=== PATIENT | male | born 2005 | race Caucasian/White ===

== ENCOUNTER 2025-04-14 13:25 | Emergency (ER) | payer SELFPAY ==
[2025-04-14 13:31] VITALS: BP 127/72
--- NOTE | 2025-04-14 15:50 | ED.GENMED ---
History of Present Illness
General
Chief Complaint: Eye Problems
Time Seen by Provider: 04/14/25 15:40
History of Present Illness
History of Present Illness:
19-year-old male presents to the emergency department for evaluation of left eye redness, states 2 days ago he was cutting some metal board with dust kicked into his eye, and symptoms began the following day. Denies any blurry or double vision,
does not wear contacts
Past History
Social History
Tobacco: Vaping (with nicotine)
Alcohol: None
Drug: Marijuana (couple times a week)
Review of Systems
Review of Systems
Allergies reviewed?: Yes
All Other Systems: ROS reviewed and negative except as documented in HPI and ROS
Phy Exam
Physical Exam
Physical Exam:
GEN: Well appearing, NAD, WDWN
HEENT: Oral mucosa moist, no scleral icterus. Moderate left conjunctival injection without visible foreign body. Fluorescein stain reveals no dye uptake, anterior chamber is without hyphema or hypopyon, extraocular motion is normal, no
conjunctival foreign bodies
Cardiac: Regular rate
Lung: No respiratory distress, no tachypnea
MSK: No gross deformity or injuries
Skin: Good color, no pallor or jaundice, no rashes
Neuro: AO x3, moves all extremities freely
Psych: Calm, cooperative
Course
Orders/Labs/Results
Orders:
Orders
04/14/25 15:54
Fluorescein Sodium [Ful-Irena] 1 mg .ROUTE .STK-MED ONE
Purified Water Eye Wash [Dacriose Eye Wash Solution] 120 ml .ROUTE .STK-MED ONE
Tetracaine HCl [Tetracaine 0.5% Ophthalmic Solution] 1 drop .ROUTE .STK-MED ONE
Vital Signs
Initial and Last Documented VS:
Initial Vital Signs
Temp Pulse Resp BP Pulse Ox
98.2 F 89 16 127/72 98
04/14/25 13:31 04/14/25 13:31 04/14/25 13:31 04/14/25 13:31 04/14/25 13:31
Last Documented Vital Signs
Temp Pulse Resp BP Pulse Ox
98.2 F 89 16 127/72 98
04/14/25 13:31 04/14/25 13:31 04/14/25 13:31 04/14/25 13:31 04/14/25 15:53
MDM/Problems Addressed
MDM/Problems Addressed:
Patient's visual acuity is normal, no visible evidence for foreign body or corneal abrasion on exam
*Pulse Oximetry
SaO2: 98
Oxygen Mode of Delivery: Room air
Patient hypoxic: no
*Critical Care Note
Total Time (30-74mins, 75-104mins- exclusive of procedures): Not Applicable
ED Attending Note
-
Portions of this chart may have been created with voice recognition software.� Occasional wrong word or��sound alike� substitutions may have occurred due to the inherent limitations of voice recognition software.
Discharge Plan
Departure
Patient Disposition: Home (Routine Discharge)
Date of Disposition: 04/14/25
Time of Disposition: 15:51
Patient with high blood pressure during this ER visit?: No
Discharge Problem:
Injury of left conjunctiva
Instructions: Conjunctivitis (Noninfectious Pinkeye) (DC)
Prescriptions:
No Action
No Current Medications
0
Activity Restrictions/Additional Instructions:
Use visine drops for symptoms if needed
Interventions
Interventions:
*Risk Screen - Suicide Last Done: 04/14/25 13:31
*General Assessment Last Done: 04/14/25 13:31
*Neglect/Abuse Screening Last Done: 04/14/25 13:31
*ED- Fall Risk Assessment Last Done: 04/14/25 13:31
*ED COVID-19 Vaccine History Last Done: 04/14/25 13:31
*Nursing Disposition Last Done: 04/14/25 16:10
Discharge Date and Time
Discharge Date/Time: 04/14/25 16:10
Print Language: DANISH
== END 2025-04-14 16:10 | disposition home or self-care (01) ==
LOC: EMR 13:25
PROVIDERS: EMERGENCY PHYSICIAN Emergency Medicine; FAMILY PHYSICIAN Family Medicine
DX: S05.02XA Injury of conjunctiva and corneal abrasion without foreign body, left eye, initial encounter (principal); W44.8XXA Other foreign body entering into or through a natural orifice, initial encounter; F17.290 Nicotine dependence, other tobacco product, uncomplicated
CPT/HCPCS: 99282